=== PATIENT | female | born 1990 | race Two or more races ===

== ENCOUNTER 2017-08-21 00:33 | Emergency (ER) | payer SELFPAY ==
[~2017-08-21] VITALS: Ht 152.4 cm; Wt 40.8 kg
[2017-08-21 00:53] VITALS: BP 106/70
--- NOTE | 2017-08-21 00:58 | PHYS DOC ---
Adult General Chief Complaint Chief Complaint: LOWER EXT PAIN HPI HPI Patient is a 26 year old female presents with complaint of left thigh pain that started yesterday, is that it was she was cleaning. Patient is 21 weeks . She denies any vaginal discharge vaginal bleeding, fevers, vomiting, diarrhea, trauma. Patient and the left leg is reproducible by palpation. Patient is able to ambulate. Review of Systems Review of Systems Constitutional: Denies fever or chills [] HENT: Denies pain Respiratory: Denies cough or shortness of breath [] Cardiovascular: No chest pain GI: Denies abdominal pain, nausea, vomiting, bloody stools or diarrhea. bilateral bilateral inguinal area discomfort that is off and on but not present today : Denies dysuria or hematuria [] Musculoskeletal: Denies back pain or joint pain. left thigh pain, worse with movement Integument: Denies rash or skin lesions [] Neurologic: Denies headache, focal weakness or sensory changes [] Physical Exam Physical Exam Constitutional: Well developed, well nourished, no acute distress, non-toxic appearance. [] HENT: Normocephalic, atraumatic, bilateral external ears normal, oropharynx moist, no oral exudates, nose normal. [] Eyes: EOMI, conjunctiva normal, no discharge. [] Neck: Normal range of motion, no tenderness, taken midline, no stridor. [] Cardiovascular:Heart rate regular rhythm, no murmur [] Lungs & Thorax: Bilateral breath sounds clear to auscultation, no tachypnea Abdomen: Bowel sounds normal, soft, no tenderness, no masses, no pulsatile masses. [] Skin: Warm, dry, no erythema, no rash. [] Back: Normal range of motion Extremities: No tenderness, no cyanosis, no DVT, ROM intact, no edema. Exception is tenderness to palpation on the left thigh. Neurologic: Alert and oriented X 3, normal motor function, normal sensory function, no focal deficits noted. [] Psychologic: Affect normal, judgement normal, mood normal. [] Current Patient Data Vital Signs Vital Signs Date Time Temp Pulse Resp B/P (MAP) Pulse Ox O2 Delivery O2 Flow Rate FiO2 08/21/17 00:53 98.5 80 16 98 Room Air 98.5 Lab Values Laboratory Tests Test 08/21/17 00:55 Urine Collection Type Unknown Urine Color Yellow Urine Clarity Clear Urine pH 7.0 Urine Specific [place] <=1.005 Urine Protein Negative mg/dL (NEG-TRACE) Urine Glucose (UA) Negative mg/dL (NEG) Urine Ketones (Stick) Negative mg/dL (NEG) Urine Blood Negative (NEG) Urine Nitrite Negative (NEG) Urine Bilirubin Negative (NEG) Urine Urobilinogen Dipstick 0.2 mg/dL (0.2 mg/dL) Urine Leukocyte Esterase Negative (NEG) Urine RBC 0 /HPF (0-2) Urine WBC 1-4 /HPF (0-4) Urine Squamous Epithelial Cells Few /LPF Urine Bacteria Few /HPF (0-FEW) EKG EKG [] Radiology/Procedures Radiology/Procedures [] Course & Med Decision Making Course & Med Decision Making Pertinent Labs and Imaging studies reviewed. (See chart for details) [] Dragon Disclaimer Dragon Disclaimer This electronic medical record was generated, in whole or in part, using a voice recognition dictation system. Departure Departure Impression: Primary Impression: Musculoskeletal leg pain Disposition: HOME, SELF-CARE Condition: STABLE Patient Instructions: Cryotherapy, Musculoskeletal Pain Additional Instructions: Please follow-up with your doctor for recheck and evaluation in 2-4 days. He may take Tylenol for the pain 650 mg every 6 hours Melinda CANTU MD Aug 21, 2017 00:58
[2017-08-21 01:05] LABS: BILIRUBIN,URINE NEGATIVE (NEG); GLUCOSE,URINE NEGATIVE (NEG); NITRITE,URINE NEGATIVE (NEG); PROTEIN,URINE NEGATIVE (NEG-TRACE); UROBILINOGEN,URINE 0.2 mg/dL (0.2 mg/dL)
[2017-08-21 01:27] LABS: RBC,URINE 0 /HPF (0-2); SQUAMOUS EPITHELIAL CELL,UR FEW /LPF
[2017-08-21 01:28] LABS: BACTERIA,URINE FEW /HPF (0-FEW)
== END 2017-08-21 02:04 | disposition home or self-care (01) ==
LOC: ER 00:33
DX: O26.892 Other specified pregnancy related conditions, second trimester (principal); M79.652 Pain in left thigh; Z3A.21 21 weeks gestation of pregnancy
CPT/HCPCS: 81001; 99283

== ENCOUNTER 2017-10-22 19:10 | Emergency (ER) | payer OTHER ==
[~2017-10-22] VITALS: Ht 147.3 cm; Wt 45.4 kg
[2017-10-22 19:25] VITALS: BP 108/59
[2017-10-22] MEDS ORDERED: PNV1TABL25 PO (19:28)
--- NOTE | 2017-10-22 19:56 | PHYS DOC ---
Past Medical History Past Medical History: No Pertinent History Past Surgical History: No Surgical History Alcohol Use: None Drug Use: None Adult General Chief Complaint Chief Complaint: SORE THROAT HPI HPI Patient is a 26 year old female presents to the emergency department with a one -day history of sore throat, no other symptoms. 28 weeks gestation. Review of Systems Review of Systems Constitutional: Denies fever or chills [] Eyes: Denies change in visual acuity, redness, or eye pain [] HENT: Denies nasal congestion, complains of sore throat Respiratory: Denies cough or shortness of breath [] Cardiovascular: No additional information not addressed in HPI [] GI: Denies abdominal pain, nausea, vomiting, bloody stools or diarrhea [] : Denies dysuria or hematuria [] Musculoskeletal: Denies back pain or joint pain [] Integument: Denies rash or skin lesions [] Neurologic: Denies headache, focal weakness or sensory changes [] Endocrine: Denies polyuria or polydipsia [] All other systems were reviewed and found to be within normal limits, except as documented in this note. Allergies Allergies Allergies Coded Allergies Type Severity Reaction Last Updated Verified No Known Drug Allergies 10/22/17 No Physical Exam Physical Exam Constitutional: Well developed, well nourished, no acute distress, non-toxic appearance. [] HENT: Normocephalic, atraumatic, bilateral external ears normal on the bilateral tympanic membranes pearly huber without effusion oropharynx moist, posterior pharynx injected, no oral exudates, nose normal. [] Eyes: conjunctiva normal, no discharge. [] Neck: Normal range of motion, no tenderness, supple without lymphadenopathy, no stridor. [] Cardiovascular:Heart rate regular rhythm, no murmur [] Lungs & Thorax: Bilateral breath sounds clear to auscultation [] Abdomen: Bowel sounds normal, soft, no tenderness, no masses, no pulsatile masses. [] Skin: Warm, dry, no erythema, no rash. [] Back: No tenderness, no CVA tenderness. [] Current Patient Data Vital Signs Vital Signs Date Time Temp Pulse Resp B/P (MAP) Pulse Ox O2 Delivery O2 Flow Rate FiO2 10/22/17 19:25 98.1 90 20 98 Room Air 98.1 EKG EKG [] Radiology/Procedures Radiology/Procedures [] Course & Med Decision Making Course & Med Decision Making Rapid strep negative Pertinent Labs and Imaging studies reviewed. (See chart for details) [] Dragon Disclaimer Dragon Disclaimer This electronic medical record was generated, in whole or in part, using a voice recognition dictation system. Departure Departure Impression: Primary Impression: Viral pharyngitis Disposition: HOME, SELF-CARE Condition: STABLE Referrals: NO PCP (PCP) [facility] Patient Instructions: Viral Pharyngitis Additional Instructions: Tylenol [id number] as labeled and is indicated for symptom management. Please follow-up with your primary care provider in 3-5 days, sooner if problems arise. ANA MATTHEWS COKEMAN Oct 22, 2017 19:56
[2017-10-23 08:42] LABS: NEGATIVE OBC STREP NEG; POSITIVE OBC STREP POS
== END 2017-10-22 20:13 | disposition home or self-care (01) ==
LOC: ER 19:10
DX: O99.513 Diseases of the respiratory system complicating pregnancy, third trimester (principal); J02.8 Acute pharyngitis due to other specified organisms; B97.89 Other viral agents as the cause of diseases classified elsewhere; Z3A.28 28 weeks gestation of pregnancy
CPT/HCPCS: 87070; 87880; 99283

== ENCOUNTER 2017-10-31 12:17 | Emergency (ER) | payer OTHER ==
[~2017-10-31] VITALS: Ht 152.4 cm; Wt 54.4 kg
[~2017-10-31 12:17] MED LIST: PNV1TABL25 PO
[2017-10-31 12:34] VITALS: BP 111/66
[2017-10-31] MEDS ORDERED: AMOX875T PO (12:48)
--- NOTE | 2017-10-31 17:18 | PHYS DOC ---
Past Medical History Past Medical History: No Pertinent History Past Surgical History: No Surgical History Alcohol Use: None Drug Use: None Adult General Chief Complaint Chief Complaint: SORE THROAT HPI HPI Patient is a 26 year old female who presents with a sore throat 2 days. Patient denies fever, nausea or vomiting. She is with a normal . She states that she has felt like she has been hot but does not have a thermometer at home to check her temperature. Review of Systems Review of Systems Constitutional: See history of present illness Eyes: Denies change in visual acuity, redness, or eye pain [] HENT: See history of present illness Respiratory: Denies cough or shortness of breath [] Cardiovascular: No additional information not addressed in HPI [] Integument: Denies rash or skin lesions [] Neurologic: Denies headache, focal weakness or sensory changes [] Endocrine: Denies polyuria or polydipsia [] All other systems were reviewed and found to be within normal limits, except as documented in this note. Allergies Allergies Allergies Coded Allergies Type Severity Reaction Last Updated Verified No Known Drug Allergies 10/22/17 No Physical Exam Physical Exam Constitutional: Well developed, well nourished, no acute distress, non-toxic appearance. [] HENT: Normocephalic, atraumatic, bilateral external ears normal, oropharynx erythematous, no oral exudates, nose normal. [] Eyes: PERRLA, EOMI, conjunctiva normal, no discharge. [] Neck: Normal range of motion, anterior cervical adenopathy, supple, no stridor. [] Cardiovascular:Heart rate regular rhythm, no murmur [] Lungs & Thorax: Bilateral breath sounds clear to auscultation [] Neurologic: Alert and oriented X 3, normal motor function, normal sensory function, no focal deficits noted. [] Psychologic: Affect normal, judgement normal, mood normal. [] Current Patient Data Vital Signs Vital Signs Date Time Temp Pulse Resp B/P (MAP) Pulse Ox O2 Delivery O2 Flow Rate FiO2 10/31/17 12:34 98.1 97 16 100 Room Air 98.1 EKG EKG [] Radiology/Procedures Radiology/Procedures [] Course & Med Decision Making Course & Med Decision Making Pertinent Labs and Imaging studies reviewed. (See chart for details) []1. Pharyngitis You are being placed on an antibiotic for your sore throat. Please do use strep precautions. Take all of the medication until it is gone. Follow-up with your primary care provider in one week if not improving or return to the ED if worsening. Take Tylenol for pain or fever. Jake Disclaimer Karenon Disclaimer This electronic medical record was generated, in whole or in part, using a voice recognition dictation system. Departure Departure Impression: Primary Impression: Pharyngitis Disposition: HOME, SELF-CARE Condition: STABLE Patient Instructions: Sore Throat Additional Instructions: Please use strep precautions. Please return to the ED if worsening. Scripts Amoxicillin (AMOXICILLIN) 875 Mg Tablet 1 TAB PO BID, #20 TAB Prov: KENAN JON APRN 10/31/17 KENAN JON APRN Oct 31, 2017 17:18
== END 2017-10-31 12:51 | disposition home or self-care (01) ==
LOC: ER 12:17
DX: O26.899 Other specified pregnancy related conditions, unspecified trimester (principal); J02.9 Acute pharyngitis, unspecified
CPT/HCPCS: 99283

== ENCOUNTER 2017-12-09 16:54 | Observation (INO) | payer OTHER ==
[2017-12-09] MEDS: ACETAMINOPHEN 325 MG TABLET. PO (18:43)
[2017-12-09] MEDS: diphenhydrAMINE HCL 25 MG CAPSULE PO (18:43)
== END 2017-12-09 18:52 | disposition home or self-care (01) ==
LOC: 3 SO LND 16:54
DX: O26.893 Other specified pregnancy related conditions, third trimester (principal); L29.9 Pruritus, unspecified; R52 Pain, unspecified; R53.83 Other fatigue; Z3A.35 35 weeks gestation of pregnancy
CPT/HCPCS: G0378; G0379; Q0163

== ENCOUNTER 2017-12-19 00:28 | Observation (INO) | payer OTHER ==
[2017-12-19 01:07] LABS: BILIRUBIN,URINE NEGATIVE (NEG); CLARITY,URINE CLEAR; COLOR,URINE YELLOW; GLUCOSE,URINE NEGATIVE (NEG); NITRITE,URINE NEGATIVE (NEG); PH,URINE 7.5; PROTEIN,URINE NEGATIVE (NEG-TRACE); UROBILINOGEN,URINE 0.2 mg/dL (0.2 mg/dL)
[2017-12-19 01:15] LABS: BACTERIA,URINE MODERATE /HPF (0-FEW); RBC,URINE 0 /HPF (0-2); SQUAMOUS EPITHELIAL CELL,UR FEW /LPF
[2017-12-19] MEDS: IV RINGERS,LACTATED 1000ML 1,000 ML IV ×4 (01:15→02:21)
[2017-12-19] MEDS: TERBUTALINE 1 MG/ML VIAL. SQ ×2 (02:45)
[2017-12-19] MEDS ORDERED: MAG HYDROX/ALUMINUM HYD/SIMETH 30 ML ORAL.SUSP PO ×2 (03:00)
[2017-12-19] MEDS ORDERED: ZOLPIDEM 5 MG TABLET. PO ×2 (03:00)
[2017-12-19] MEDS ORDERED: ACETAMINOPHEN 325 MG TABLET. PO ×2 (03:00)
[2017-12-19] MEDS ORDERED: TERBUTALINE 1 MG/ML VIAL. ×2 (03:00)
[2017-12-19] MEDS: hydrOXYzine PAMOATE 25 MG CAPSULE PO ×2 (03:09)
[2017-12-19] MEDS: NIFEdipine 10 MG CAPSULE PO ×6 (03:25→05:38)
[2017-12-19] MEDS: AMPICILLIN SODIUM 2 GM in IV NORMAL SALINE 100ML 100 ML IV (03:26)
[2017-12-19] MEDS ORDERED: AMPICILLIN SODIUM 1 GM in IV NORMAL SALINE 50ML 50 ML IV (07:00)
[2017-12-19] MEDS: AMPICILLIN SODIUM IV Push 1 GM VIAL. IVP ×2 (07:13)
== END 2017-12-19 08:28 | disposition home or self-care (01) ==
LOC: 3 SO LND 00:28
DX: O99.89 Other specified diseases and conditions complicating pregnancy, childbirth and the puerperium (principal); M54.9 Dorsalgia, unspecified; Z3A.36 36 weeks gestation of pregnancy
CPT/HCPCS: 81001; 87086; 96361; 96365; 96375; G0378; G0379; J0290; J3105; J7120; Q0177

== ENCOUNTER 2017-12-28 23:07 | Observation (INO) | payer OTHER ==
[2017-12-28] MEDS ORDERED: IV RINGERS,LACTATED 1000ML 1,000 ML IV ×2 (23:15)
[2017-12-28 23:34] LABS: BILIRUBIN,URINE NEGATIVE (NEG); CLARITY,URINE CLEAR; COLOR,URINE YELLOW; GLUCOSE,URINE NEGATIVE (NEG); NITRITE,URINE NEGATIVE (NEG); PH,URINE 7.5; PROTEIN,URINE NEGATIVE (NEG-TRACE); UROBILINOGEN,URINE 0.2 mg/dL (0.2 mg/dL)
[2017-12-28 23:45] LABS: BACTERIA,URINE MODERATE /HPF (0-FEW); RBC,URINE 0 /HPF (0-2); SQUAMOUS EPITHELIAL CELL,UR MOD /LPF
[2017-12-28 23:46] LABS: BARBITURATES NEG (NEG); BENZODIAZEPINES NEG (NEG); CANNABINOIDS NEG (NEG); COCAINE NEG (NEG); METHADONE NEG (NEG); OPIATES NEG (NEG); PHENCYCLIDINE NEG (NEG)
[2017-12-28 23:48] LABS: AMPHETAMINE/METHAMPHETAMINE NEG (NEG); ETHANOL, URINE NEG (NEG)
[2017-12-29] MEDS: ACETAMINOPHEN 500 MG TABLET PO ×2 (00:29)
== END 2017-12-29 00:37 | disposition home or self-care (01) ==
LOC: 3 SO LND 23:07
DX: O99.89 Other specified diseases and conditions complicating pregnancy, childbirth and the puerperium (principal); M54.9 Dorsalgia, unspecified; Z3A.37 37 weeks gestation of pregnancy
CPT/HCPCS: 80307; 81001; 87086; G0378; G0379

== ENCOUNTER 2018-01-13 19:44 | Emergency (ER) | payer OTHER ==
[2018-01-14 09:15] LABS: NEGATIVE OBC STREP NEG; POSITIVE OBC STREP POS
== END 2018-01-13 20:15 | disposition home or self-care (01) ==
LOC: ER 19:44
DX: J02.9 Acute pharyngitis, unspecified (principal); J34.89 Other specified disorders of nose and nasal sinuses
CPT/HCPCS: 87070; 87880; 99283